=== PATIENT | male | born 1945 ===

== ENCOUNTER → 2019-02-03 11:53 | Outpatient (CLI) | payer MEDICARE, SELFPAY ==
[2019-02-03 12:47] LABS: Add Manual Diff / Slide Review NO; Basophils Absolute Auto 0 /uL (0-100); Basophils Percent Auto 0.4 % (0-2); Eosinophils Absolute Auto 0 /uL (0-450); Eosinophils Percent Auto 0.4 % (2-4); Hematocrit 48.2 % (41-53); Hemoglobin 16.4 g/dL (13.5-17.5); Lymphocytes Absolute Auto 2200 /uL (1100-4500); Lymphocytes Percent Auto 29.6 % (25-40); Mean Corpuscular Hemoglobin 31.6 PG (26-34); Mean Corpuscular Volume 92.9 fL (80-100); Monocytes Absolute Auto 500 /uL (0-900); Monocytes Percent Auto 7.2 % (3-14); Neutrophils Absolute Auto 4700 /uL (1500-7000); Neutrophils Percent Auto 62.4 % (50-75); Platelet Count 291 X10^3/uL (150-400); Red Blood Cell Count 5.19 X10^6/uL (4.5-5.9); Red Cell Distribution Width 13.7 % (11.6-14.8); White Blood Cell Count 7.5 X10^3/uL (4.5-11.0)
[2019-02-03 13:00] LABS: Hemoglobin A1C% w Est Avg Glu 5.6 % (4.0-6.0)
[2019-02-03 13:03] LABS: Erythrocyte Sedimentation Rate 3 MM/HR (0-15)
[2019-02-03 13:27] LABS: Alanine Aminotransferase 25 IU/L (<50); Albumin 4.6 g/dL (3.5-5.0); Albumin Globulin Ratio 1.4 (1.0-2.8); Alkaline Phosphatase 91 U/L (38-126); Aspartate Aminotransferase 28 IU/L (17-59); Bilirubin Total 0.5 mg/dL (0.2-1.3); Blood Urea Nitrogen 17 mg/dL (9-20); C-Reactive Protein Quant 0.6 mg/dL (<1.0); Calcium 9.9 mg/dL (8.4-10.2); Carbon Dioxide 24 mmol/L (22-32); Chloride 104 mmol/L (98-107); Estimated Glomerular Filt Rate > 60.0 mL/min (>60); Globulin 3.3 g/dL (1.7-4.1); Glucose 100 mg/dL (80-110); HEMOLYSIS < 15 (0-50); Potassium 4.8 mmol/L (3.4-5.1); Sodium 139 mmol/L (137-145); Total Protein 7.9 g/dL (6.3-8.2)
== END ==
PROVIDERS: PCP Nurse Practitioner; Visit Provider Orthopaedic Surgery
DX: Z01.818 Encounter for other preprocedural examination (principal); Z01.812 Encounter for preprocedural laboratory examination; R73.9 Hyperglycemia, unspecified
CPT/HCPCS: 36415; 80053; 83036; 85025; 85651; 86140; 93005

== ENCOUNTER → 2020-02-28 10:08 | Outpatient (CLI) | payer OTHER, MEDICARE, SELFPAY ==
[2020-02-28 11:31] LABS: COVID19 -Nasal RAPID Negative (Negative)
== END ==
PROVIDERS: PCP Nurse Practitioner; Visit Provider Physician Assistant
DX: Z01.812 Encounter for preprocedural laboratory examination (principal); Z20.828 Contact with and (suspected) exposure to other viral communicable diseases
CPT/HCPCS: 87635; C9803

== ENCOUNTER 2020-03-02 06:07 | Day surgery (SDC) | payer OTHER, MEDICARE, SELFPAY ==
[2020-02-23 08:22] VITALS: BMI 27.2
[2020-03-02] VITALS (15 sets, daily range): BP systolic 96–164; BP diastolic 57–95; PULSE 81–92; RESP 12–18; TEMP 36.2–37.2; O2SAT 92–100; BMI 27.2
[2020-03-02] MEDS: CELECOXIB 200 MG CAPSULE 400 MG PO (06:54)
[2020-03-02] MEDS: ACETAMINOPHEN 325 MG TABLET 975 MG PO (06:55)
[2020-03-02] MEDS: LACTATED RINGERS 1,000 ML 42 ML IV ×3 (07:10→13:06)
--- NOTE | 2020-03-02 10:11 | DI.RAD.S_ITS ---
PROCEDURE: XR KNEE LT 1TO2V INDICATIONS: TOTAL LEFT KNEE TECHNIQUE: 2 view(s) of the knee acquired. COMPARISON: None. FINDINGS: Bones: Patient is status post knee joint arthroplasty. Hardware components are in expected positions. Visualized bony structures are intact. Soft tissues: Overlying postoperative changes are noted. IMPRESSION: Expected postoperative alignment Dictated by: Hima Lopes M.D. on 03/02/2020 at 14:04 Approved by: Hima Lopes M.D. on 03/02/2020 at 14:04
[2020-03-02] MEDS: VANCOMYCIN 1,000 MG/200 ML PIGGYBACK 200 MG IV (10:53)
--- NOTE | 2020-03-02 11:03 | PM.PREOP ---
Pre-operative Note COVID-19 COVID-19 status: Negative Interval Note History & Physical reviewed/Exam performed by Physician: Yes Changes to H&P: No
--- NOTE | 2020-03-02 11:03 | PM.OP.1 ---
Operative Date/Time/Diagnoses Date of procedure: 03/02/20 Time of procedure: 11:31 Pre-op diagnosis: left knee OA Post-op diagnosis: same Procedure & Clinicians Procedure: Left total knee arthroplasty Same procedure as scheduled: Yes Indications: The patient has had progressively worsening left knee pain with radiographic changes consistent with arthritis. Non-operative management has failed and the patient has requested total knee replacement. The risks, benefits and alternatives to surgery were discussed with the patient prior to proceeding. Risks discussed included, but were not limited to, failure to relieve pain, stiffness, infection, nerve damage, deep venous thrombosis, pulmonary embolism, stroke, coma, heart attack, permanent paralysis and , as well as the potential need for eventual revision of the prosthetic. Surgeon: Loraine Gomez Specialty Transformer Assembler: Yuan Gregory Anesthesia Type: General and Spinal Operative Notes Findings: Severe left knee osteoarthritis, adequate bone, adequate stability Closure Type: primary Specimen(s): none sent Prosthetic devices, grafts, tissues, transplants, or devices: [facility] BCS 2 size 7 femur, size 6 tibia, +9 poly, 38 oval patella Estimated Blood Loss (mL): 250 Blood products transfused: none Tourniquet time (min): 71 Procedure in detail: The patient was seen in the pre-operative area, where the patient identified the left knee as the operative site and this was marked with my initials. The patient received pre-operative antibiotics, and was taken to the operating room and placed on the operative table in the supine position. After satisfactory anesthesia, a illustrator set out was performed. The left leg was encircled with a tourniquet about the proximal thigh, and the leg was prepared from the toes to the tourniquet with ChloroPrep in the usual fashion and draped through sterile drapes. The leg was elevated and exsanguinated with Eschmark bandage and the tourniquet inflated to [250] mmHg pressure. The knee was approached through an approximately 18 cm incision centered over the patella and carried into the knee through a medial parapatellar arthrotomy. A portion of the medial and lateral meniscus was resected. Soft tissue was carefully mobilized around the patella the patella was measured with a caliper. Bone was resected from the patella and the patellar height was reconstituted with up an appropriate sized patellar component. A cover was then placed on the patella. A small amount of additional medial and lateral meniscus was resected. The visionare guide fit well to the distal femur. It looked like an appropriate distal femoral cut and the cut was made without difficulty. The rotation was assessed and the appropriate size femoral guide was placed on the distal femur and finishing cuts were made. There was no evidence of notching. The anterior, posterior and chamfer cuts were then made. The posterior osteophytes and soft tissues were then removed. The posterior capsule was injected with part of a mixture of 60 ml 0.25% Marcaine mixed with 20 ml Exparel for post operative pain control. The remainder of this mixture was injected into the capsule and subcutaneous tissues during cement curing. The tibia was prepared and the visionaire guide fit well to the distal tibia. The rotation was assessed. The patient was placed in extension residual medial and lateral meniscus as well as any residual bone was carefully resected. [No] additional tibia was resected. Hemostasis was achieved especially posteriorly. Additional local was injected into the posterior capsule. The extension gap was assessed and additional releases for gap balancing were performed as necessary. It was checked with the gap pension manager. The femoral component was trial was placed and the notch was finished. Trial tibial and femoral components were then placed and the knee placed through a range of motion. Range of motion was [0-130], with good stability throughout the range. The trials were then removed, and the tibia was finished. The bone was prepared with pulsatile lavage, and dried with a sponge. Cement was applied and the final prosthetics placed. Excess cement was removed during and after cement curing. A brief Betadine soak was performed. After confirming there was no extruded cement posteriorly, the final tibial insert was placed. The knee was copiously irrigated and the tourniquet deflated. Hemostasis was obtained with the Bovie cautery. A drain was placed and brought out superolaterally. The capsule was closed with interrupted Vicryl suture. The subcutaneous layer was closed with barbed sutures, and the skin with a running 3-0 V-Lock suture and Surgical glue. An Aquacel Ag dressing was applied and the patient was taken to recovery having tolerated the procedure well. Complications: none Post-operative Condition: stable Disposition: Acute Care Plan for aftercare: The patient will be maintained on a standard total knee replacement protocol with weight bearing as tolerated. The patient will receive aspirin and sequential compression devices for DVT prophylaxis. The patient will be discharged home when safe for the home environment.
[2020-03-02] MEDS: CEFAZOLIN 2 GM/100 ML FROZ.PIGGY IV ×2 (11:23→19:05)
--- NOTE | 2020-03-02 11:59 | SUR.OPER ---
Supine on padded OR bed. Pillow under head, arms secured on padded armboards <90 degree abduction. Safety belt across torso. Non-operative leg secured with tape over blanket over lower leg. Operative leg secured in DeMayo positioner. Foam padded brace at thigh of operative leg.
[2020-03-02] MEDS: BUPIVACAINE 0.25% W/ EPI 30 ML VIAL 60 ML INJ (12:04)
[2020-03-02] MEDS: BUPIVACAINE LIPOSOME 266 MG/20 ML VIAL INJ (12:04)
[2020-03-02] MEDS: TRANEXAMIC ACID 1,000 MG VIAL 2000 MG INJ ×2 (12:05→13:00)
[2020-03-02] MEDS: SODIUM CHLORIDE IRRIG SOLUTION 250 ML, POVIDONE-IODINE SPONGE STICKS 1 APPLIC IRR (12:05)
[2020-03-02] MEDS: OXYCODONE IR 5 MG TABLET PO (13:38)
[2020-03-02] MEDS: ACETAMINOPHEN 325 MG TABLET 650 MG PO ×2 (14:52→20:46)
[2020-03-02] MEDS: LACTATED RINGERS 1,000 ML 100 ML IV (14:52)
--- NOTE | 2020-03-02 14:57 | PC.NURSE ---
admit pt to room 221 post op knee- mary wrap intact over aquacell - no drains no patel, LR @ 100cc/h. pt fully admitted , lungs clear + cms. instructed the call light and bed controls
[2020-03-02] MEDS: IBUPROFEN 400 MG TABLET PO ×2 (17:19→20:47)
[2020-03-02] MEDS: ONDANSETRON 4 MG/2 ML INJ IV (17:19)
[2020-03-02] MEDS: ASPIRIN EC 81 MG TABLET PO (20:46)
[2020-03-02] MEDS: lisinopriL 20 MG TABLET 40 MG PO (20:47)
[2020-03-02] MEDS: DOCUSATE 100 MG CAPSULE PO (20:47)
[2020-03-03] VITALS: BP 160/89; PULSE 102; RESP 16; TEMP 37.2; O2SAT 96
[2020-03-03] MEDS: LACTATED RINGERS 1,000 ML 100 ML IV (00:02)
[2020-03-03] MEDS: ONDANSETRON 4 MG/2 ML INJ IV (02:28)
[2020-03-03] MEDS: IBUPROFEN 400 MG TABLET PO ×2 (02:28→09:45)
[2020-03-03] MEDS: CEFAZOLIN 2 GM/100 ML FROZ.PIGGY IV (03:10)
[2020-03-03 05:36] VITALS: BP 144/90; PULSE 80; RESP 16; TEMP 36.9; O2SAT 97
[2020-03-03] MEDS: HYDROCODONE/ACET 10/325 TABLET 1 TAB PO ×3 (05:40→12:49)
[2020-03-03 05:44] LABS: Hematocrit 40.9 % (41-53); Hemoglobin 13.7 g/dL (13.5-17.5)
[2020-03-03 08:24] VITALS: BP 167/87; PULSE 85; RESP 14; TEMP 37.1; O2SAT 95
[2020-03-03] MEDS: ASPIRIN EC 81 MG TABLET PO (09:45)
[2020-03-03] MEDS: DOCUSATE 100 MG CAPSULE PO (09:45)
--- NOTE | 2020-03-03 09:45 | PM.DS.1 ---
History of Present Illness History of Present Illness Date Patient Seen: 03/03/20 Time Patient Seen: 09:45 Chief complaint: OPB Narrative: see progress note Discharge Providers Provider Discharge Date: 03/03/20 Primary care physician: RAJNI Winter Consults: 03/02/20 10:11 Consult to Anesthesiology Routine Comment: Consulting Provider: Anesthesiologist Reason for consultation: Regional block for post operative pain control 03/02/20 14:15 Consult to Discharge Planning Routine Comment: Consult to Physical Therapy Evaluate & Treat Comment: Physician Instructions: postop TKA protocol Consult to Respiratory Therapy Evaluate & Treat Comment: Physician Instructions: Evaluate and treat Discharge provider: Yuan Gregory PA-C Summary Hospital Course Discharge Diagnosis: left knee OA Hospital Course: Left total knee arthroplasty Same procedure as scheduled: Yes Indications: The patient has had progressively worsening left knee pain with radiographic changes consistent with arthritis. Non-operative management has failed and the patient has requested total knee replacement. The risks, benefits and alternatives to surgery were discussed with the patient prior to proceeding. Risks discussed included, but were not limited to, failure to relieve pain, stiffness, infection, nerve damage, deep venous thrombosis, pulmonary embolism, stroke, coma, heart attack, permanent paralysis and , as well as the potential need for eventual revision of the prosthetic. Surgeon: Loraine Gomez Client Relation Specialist: Yuan Gregory Anesthesia Type: General and Spinal Operative Notes Findings: Severe left knee osteoarthritis, adequate bone, adequate stability Closure Type: primary Specimen(s): none sent Prosthetic devices, grafts, tissues, transplants, or devices: [employer] [facility] BCS 2 size 7 femur, size 6 tibia, +9 poly, 38 oval patella Estimated Blood Loss (mL): 250 Blood products transfused: none Tourniquet time (min): 71 Status at Discharge Cognitive/behavioral status at discharge: at baseline, oriented Functional status at discharge: uses cane/walker Overall status at discharge: patient is progressing back to baseline Time Spent with Patient Time spent: Less than 30 minutes Exam Vital Signs (past 8 hours): - 03/03/20 05:36 03/03/20 08:24 Temperature 98.5 F 98.8 F Pulse Rate 80 85 Respiratory Rate 16 14 Blood Pressure 144/90 H 167/87 H Pulse Oximetry 97 95 Oxygen Delivery Method Room Air Oxygen Flow Rate 0 Narrative Exam Narrative: see progress note Objective Labs Result Diagrams: 03/03/20 05:22 Labs: Laboratory Results - last 24 hr 03/03/20 05:22 Hgb 13.7 Hct 40.9 L PFSH Medical History Chronic neck pain Hip fracture, left (1983) HTN (hypertension) Osteoarthritis Surgical History History of total left hip arthroplasty (12/25/14) Hx of bursectomy (05/17/17) Hx of cholecystectomy Hx of left knee surgery Hx of right inguinal hernia repair Social History household members: spouse Smoking Status: Never smoker alcohol intake: current Discharge Assessment & Plan Assessment and Plan Assessment: Stable status post left total knee arthroplasty Plan of Treatment: Weight-bearing as tolerated. Aspirin for DVT prophylaxis. Discharge home today in stable condition. Discharge Plan Discharge Plan Patient Disposition: Home Provider Discharge Comment: DC after PT Discharge orders & Medications Discharge Orders: Discharge (Order); Ordered 03/03/20 Ordered By: Yuan Gregory Prescriptions: New acetaminophen 325 mg Tablet 650 mg PO TID Qty: 60 RF: 0 hydrocodone-acetaminophen 10-325 mg Tablet 1 tab PO Q4H PRN (Reason: Pain) Qty: 60 RF: 0 aspirin 81 mg Tablet,Delayed Release (Dr/Ec) 81 mg PO BID Qty: 60 RF: 0 ibuprofen 400 mg Tablet 400 mg PO Q4HR Qty: 60 RF: 0 ondansetron 4 mg Tablet,Disintegrating 4 mg PO Q4HR PRN (Reason: Nausea) Qty: 20 RF: 0 docusate sodium [DOK] 100 mg Capsule 100 mg PO BID Qty: 20 RF: 0 Continued fluconazole [Diflucan] 100 mg tablet 400 mg PO QAM Qty: 0 RF: 0 lisinopril 40 mg Tablet 40 mg PO BEDTIME RF: 0 Discontinued hydrocodone-acetaminophen 10 MG/325 MG tablet 1 tab PO Q4HP PRN (Reason: Pain) RF: 0 Follow up/Referrals: Latha Lynn ARNP [Primary Care Provider] - Loraine Gomez MD [Physician] - (2 wks) Diet/Activity/Treatments Diet: Diet as Tolerated Activity: WBAT Cold/Heat Therapy: ice to knee as needed Skin/Wound/Dressing Care Report to your healthcare provider any signs of infection, such as:: chills, fever, increased pain, unusual drainage and unusual redness Dressing: keep clean and dry Visit Report/Discharge Packet Instructions: DI for Knee Replacement Stand Alone Forms: Surgery Discharge Discharge Data Primary Care Provider: Latha Lynn Attending Provider: Loraine Gomez
--- NOTE | 2020-03-03 09:50 | PC.NURSE ---
AM shift Pt is feeling well with pain well controlled and no nausea this am. PT up in [place] and Pt plans to dc at lunchtime today.
[2020-03-03] MEDS: FLUCONAZOLE 100 MG TABLET 400 MG PO (10:57)
--- NOTE | 2020-03-03 11:14 | PT.IIE ---
Current Diagnoses Unilateral primary osteoarthritis, left knee (03/02/20) Surgery Performed Operation Date: 07/10/19 13:45 <No data on this case meets the specified criteria> Operation Date: 12/18/19 13:45 <No data on this case meets the specified criteria> Operation Date: 03/02/20 07:45 Actual Procedures p Total Knee Arthroplasty(Left) - Loraine Gomez MD Surgical History (Last Reviewed 03/03/20 @ 09:46 by Yuan Gregory PA-C) History of total left hip arthroplasty (12/25/14) Hx of bursectomy (05/17/17) Hx of cholecystectomy Hx of left knee surgery Hx of right inguinal hernia repair Medical History (Last Reviewed 03/03/20 @ 09:46 by Yuan Gregory PA-C) Chronic neck pain Hip fracture, left (1983) HTN (hypertension) Osteoarthritis Physical Therapy Inpatient Evaluation/Re-Eval M1 PT/OT-IP Prior Functional Status Start: 03/03/20 08:44 Freq: NEEDED Status: Active Protocol: Document 03/03/20 10:58 (Rec: 03/03/20 11:14 [email or web address]) Medical Review Prior Functional Status Medical History Reviewed Yes Diet/Fluid Consistency Regular Communication no deficits noted Mobility and Gait pt ussed SPC for long walks usually but progressively getting worse who uses B crutches to amb since January . Activities of Daily Living and IADL's IND for ADLs and able to drive . assisted in hosue cleaning and cooking. Social History Household Members spouse Living Arrangements House Number of Floors (Floors) One Floor Number of Stairs To Enter/Railing? 3 THERESA with B rails for front entrance, 1 THERESA w/o rails for back entrance Home Environment Standard Height Toilet,Walk in Shower Home Equipment Front Wheel Walker,Straight Cane,Crutches,Raised Toilet Seat w/Armrests,Shower Seat with Backrest,Consulting Hr Professional Employment Status Retired Additional Social History Comment Pt lives with his in [place]. Pt likes to spend time at his [employer] shop 90 % of the time. 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 will be assist radio time salesperson and their renter can assist if needed as well. M2 PT-IP Current Condition Start: 03/03/20 08:44 Freq: NEEDED Status: Active Protocol: Document 03/03/20 10:58 (Rec: 03/03/20 11:14 [email or web address]) Physical Therapy Current Condition Current Condition Evaluation Date 03/03/20 Treatment Diagnosis L TKA, difficulty in walking Onset Date 03/02/20 Weight Bearing Status Weight Bearing Status Weight Bear as Tolerated M3 PT-IP Subjective Start: 03/03/20 08:44 Freq: NEEDED Status: Active Protocol: Document 03/03/20 10:58 (Rec: 03/03/20 11:14 [email or web address]) Subjective Physical Therapy Visit Type Type Initial Evaluation Visit Start Time 09:00 Visit Stop Time 09:33 Total Visit Minutes 33 Notes attended session Number of CASER UP Visits 0 Physical Therapy Visit Comments Patient Comments Im feeling good today. Patient Goals to return home once he is medically safe. Therapy Pain Assessment Pain When Pain Assessed During Mobility Pain Present Pain Present Pain Reported Location ledft knee Intensity 3 Scale Used Numeric (0 - 10) Description Aching,With Movement Pain Management Techniques Timing of Activity with Medications M4 PT-IP Mobility and Gait Start: 03/03/20 08:44 Freq: NEEDED Status: Active Protocol: Document 03/03/20 10:58 (Rec: 03/03/20 11:14 [email or web address]) PT-Bed Mobility Assessment Supine to Sit Supine to Sit Standby Assistance,Bedrails Scooting Scooting to Edge of Bed Standby Assistance PT-Transfer Assessment Sit to and From Stand Sit to and from Stand Standby Assistance,1 Person Assistance,Use of Upper Extremities Equipment Transfer Assistive Device Gait Belt,Front Wheeled Walker Orthotic/Prosthetic Devices or Brace: No Transfers Transfer Destination Bed,Chair Transfer Technique Stand Step Pivot Transfer Ability Level of Assist Standby Assistance,Use of Upper Extremities Comments Mobility Comments Pt was in bed upon PT arrival. at bedside. pain at 05/12 . Pt practiced TKE in bed at first and he was able to completed supine to long sit with slight pull from R bed rail. He then pivoted himself to L EOB SBA. Pt practiced seated knee flexion up to 75- 80 degrees of L knee flexion. He then stood up with SBA from staggered stance position with FWW. He proceed to walk in the hallway with step to pattern at first. Pt walked approx 60 ft with good step to pattern steadily CGA. He then requested to return to his room d/t increased soreness at L knee. He was able to use 1/ 2 step over gait pattern but decreased L foot clearance and L knee flexion during swing phase. He was able to demonstrate safe stand step pivot transfer to chair with good hand placements on chair armrests. Pt cont to practice seated knee flexion after. BP at 160/82. (baseline) Call light placed within reach. Gait Assessment Gait Gait Assistance Required: Standby Assistance,Contact Guard Assist Distance (Feet) 120 Able to Maintain Weight Bearing Status Yes During Gait Assistive Devices Assistive Device Gait Belt,Front Wheeled Walker Orthotic/Prosthetic Devices or Brace: No Gait Deviations General Gait Pattern Antalgic,Decreased Stride Length,Decreased Feet Clearance,Step-to Gait Factors Limiting Gait Function Factors Limiting Gait Function Decreased Activity Tolerance, Decreased Strength,Limited Range of Motion,Pain,Poor Balance Comments Gait Comments see mobiltiy comments Stair Climbing Assessment Comments Stair Climbing Comments did not assess yet. PT-Balance Assessment Sitting Balance and Reactions Static Sitting Balance Ability Normal Dynamic Sitting Balance Ability Normal Standing Balance and Reactions Static Standing Balance Ability Good Dynamic Standing Balance Ability Good Device Used FWW M5 PT-IP Objective Assessments Start: 03/03/20 08:44 Freq: NEEDED Status: Active Protocol: Document 03/03/20 10:58 (Rec: 03/03/20 11:14 [email or web address]) Orientation Orientation/Cognition Level of Alertness Alert Orientation Name,Age,Birthday,Month,Date, Year,Day of Week,Place, Situation Language Function Ability No Deficits Noted Safety Awareness Understands Safety Issues Memory Description No Deficits Noted Gross Range of Motion Upper Extremity ROM Assessment Within Functional Limits Lower Extremity ROM Assessment Left Impaired Impairments 8 - 80 degrees flexion in seated. Strength Upper Extremity Strength Assessment Within Functional Limits Lower Extremity Strength Assessment Left Impaired Hip 5/5 Knee 4-/5 Ankle 5/5 Coordination Assessment Gross Coordination Gross Coordination WNL Sensation Assessment Sensation Gross Sensation WNL M6 PT-IP Treatment Start: 03/03/20 08:44 Freq: NEEDED Status: Active Protocol: Document 03/03/20 10:58 (Rec: 03/03/20 11:14 [email or web address]) Physical Therapy Treatment Exercises Exercises Ankle Pumps,Gluteal Sets,Quad Sets,Heel Slides Education Education Provided Precautions,Weight Bearing Status,Post-Op Packet,Safety M7 PT-IP Assessment and Plan Start: 03/03/20 08:44 Freq: NEEDED Status: Active Protocol: Document 03/03/20 10:58 HH (Rec: 03/03/20 11:14 [email or web address]) PT Summary Assessment and Plan Potential Rehabilitation Potential Excellent Status of Condition at Evaluation Stable Summary Impairments Pain,ROM,Strength,Balance,Bed Mobility,Transfers,Gait, Activity Tolerance Assessment Summary Pt is a74 yo male s/p POD1 L TKA. PLOF: pt was active and very IND but does use SPC for long walks. He then had to use B crutches for mobility starting from January d/t increased L knee pain. He is IND for ADLs and min assistance from . CLOF= pt needed SBA/CGA for all mobility with FWW. His pain is well controlled and both pt and have good safety awareness and understanding of post op protocol and HEP. Pt will have to clear 3 steps with B rails/ 1Step w/o rails with PT prior to DC home with assistance and outpatient PT Goals Bed Mobility Goal Independent Transfer Goal Standby Assistance,Contact Guard Assistance,Front Wheeled Walker Gait Goal Standby Assistance,Contact Guard Assistance,Front Wheel Walker Gait Distance 200 Other Goals 3 steps with B rails/ 1Step w/ o rails Days to Meet Goals 2 Frequency of Treatment Frequency Of Treatment Twice a Day Treatment Plan Physical Therapy Treatment Plan Bed Mobility Training,Transfer Training,Gait Training, Therapeutic Exercise,Balance Retraining,Post Op Education, Discharge Planning,Hot or Cold Pack,Neuromuscular Re-ed Other Recommendations and Next Treatment vitals Focus gait training stair climbing 3 steps with B rails/ 1Step w/ o rails Recommendations To Nursing Amount of Assist Needed 1 Person Assist Discharge Recommendations PT Discharge Recommendations Home with Assistance, Outpatient PT Transportation Needs at Discharge Private Vehicle
[2020-03-03 11:20] VITALS: BP 146/78; PULSE 72; RESP 16; TEMP 36.9; O2SAT 94
--- NOTE | 2020-03-03 14:18 | CM.DANOTE ---
DCP/assessment: Reviewed chart. Patient is a 74yr old male admitted to [facility] for left TKA performed on 03-02-20. PCP listed is Latha Lynn. Primary payor is 1)[facility]. Met with patient and spouse/Kary at bedside explained CM/SW role. Patient reports that he plans to return home today after seen by therapy. Patient has all needed DME and scheduled to go to outpatient therapy in [place]. No identified needs. P: Home at time of d/c. TYSON Lara Discharge Planning/Care Management CM Discharge Assessment Start: 03/03/20 14:16 Freq: Status: Active Protocol: Document 03/03/20 14:16 KJS (Rec: 03/03/20 14:18 KJS [id number]) Discharge Planning Assessment Assigned [employer] As[employer]er TYSON Lara Contact Information Kary Torres (spouse) # [phone] Advance Directives? No History Provided By Patient,Significant Other, Medical Record Prior Living Arrangements House Household Members spouse Type of transporation used prior to Drives own vehicle admit Independent with ADL's Yes Is patient alert and oriented? Yes Caregiver for Another No DME Already Rented / Owned FWW / Walker Patient/Family Preference OP PT Therapy Discharge Plan Home Transportation Arrangement Spouse to provide transport. Referrals Initiated None needed Whiteboard Updated in Patient Room with Yes name and ext. # of [employer] Assembler Review Status In Process Next Review Type Continued Stay Review Pre-Anesthesia Assessment Start: 02/23/20 08:22 Freq: Status: Complete Protocol: Document 02/23/20 08:22 CAB (Rec: 02/23/20 09:30 CAB [id number]) Pre-Anesthesia Assessment Preferred Name Rinku Patient Information Reviewed Via Phone Assessment Assessment Completed With Patient Diagnostic Results BMP/CMP,CBC,EKG Comment Outside labs/EKG scanned, COVID screen @ [facility] 02/28/20 Primary Care Provider Latha Lynn Seen Specialist in Last 12 Months Yes Specialist Seen Orthopedist,Other Comment Infectious physician Primary Language Omani Height 177.8 cm Weight 86.183 kg Body Mass Index (BMI) 27.2 Hearing Ability Normal Visual Assist Contacts Dentition Type Teeth, Natural Present Barriers to Learning None Hx Anesthesia Reactions No Hx Family Anesthesia Reaction No Hx Malignant Hyperthermia No Hx Blood Transfusions No Anesthesia Review Requested No alcohol intake current alcohol intake frequency a few times a week Smoking Status Never smoker Substance Use Type does not use Pain Present Pain Reported Musculoskeletal Symptoms Abnormal Gait,Difficulty Walking,Joint Pain,Neck Pain History of Falling (Recent or History of No ) Patient is completely paralyzed or No completely immobile Prosthesis or Orthotic Device Front Wheel Walker,Crutches Mental Status Oriented to own ability Is patient on oxygen? No Does patient have AMOR/SOB No Hx Sleep Apnea No Currently Taking a Beta Clay No Can You Climb a Flight of Stairs Without Yes SOB Hx Chest Pain No Hx SOB No Hx Syncope or Dizziness No Anti-Coagulant Therapy No Has a Media Senior Recruiter No Cardiac Testing No Hx Pacemaker/ICD No Pacemaker Rep Required? No Cardiac Clearance Received Not Applicable Diet Type At Home Regular dysphagia No Urinary Catheter Present No Hx Urinary Self Catheterization No Diabetes No Hx Drug Resistant Organism No Presence of External or Internal Medical Yes: Left hip Devices Have you had any close contact with No someone diagnosed with COVID-19? Marital Status Lives With spouse Prior Living Arrangements House Number of Floors (Floors) One Floor Support System Spouse Does the Patient Have Assistance After Yes Surgery Comment Pt not advised on length of stay per surgeon Feels Safe in Current Environment Yes Been Physically Hurt or Threatened By a No Person in Current Environment Do you have thoughts of harming yourself None or others? Are you currently considering suicide? No Do you have a plan to hurt yourself or No Plan others? Do You Have Any Spiritual Beliefs That No May Affect Your HC Choices? Do You Have Any Cultural Practices That No May Affect Your HC Choices? Comment Latter-Day Who Can We Speak to About Patient's Care Family, friends Identifying Code for Release of Patient Declines to issue Information Health Care Proxy/Next of Kin Kary () Health Care Proxy Emergency Contact Name Kary () Emergency Contact Advance Directives? No PAC Instructions Durable medical equipment, Medications to take/avoid, Nasal antibiotic,No ETOH/ petroleum product on skin DOS, NPO,Pre-surgical wash,Sensory aids,Sturdy shoes/comfortable clothes,Do not bring valuables and remove jewelry
--- NOTE | 2020-03-03 14:35 | PT.IPTN ---
Current Diagnoses Unilateral primary osteoarthritis, left knee (03/02/20) Surgery Performed Operation Date: 07/10/19 13:45 <No data on this case meets the specified criteria> Operation Date: 12/18/19 13:45 <No data on this case meets the specified criteria> Operation Date: 03/02/20 07:45 Actual Procedures p Total Knee Arthroplasty(Left) - Loraine Gomez MD Physical Therapy Treatment Note M2 PT-IP Current Condition Start: 03/03/20 08:44 Freq: NEEDED Status: Active Protocol: Document 03/03/20 10:58 HH (Rec: 03/03/20 11:14 [id number]) Physical Therapy Current Condition Current Condition Evaluation Date 03/03/20 Treatment Diagnosis L TKA, difficulty in walking Onset Date 03/02/20 Weight Bearing Status Weight Bearing Status Weight Bear as Tolerated M3 PT-IP Subjective Start: 03/03/20 08:44 Freq: NEEDED Status: Active Protocol: Document 03/03/20 14:12 SP (Rec: 03/03/20 16:15 SP [id number]) Subjective Physical Therapy Visit Type Type Treatment Note Visit Start Time 14:12 Visit Stop Time 14:35 Total Visit Minutes 23 Number of ASSISTANT INFANT TEACHER Visits 1 Physical Therapy Visit Comments Patient Comments I am doing pretty good, ready to try stairs and go home with my . Patient Goals To return home with my to help me. Therapy Pain Assessment Pain When Pain Assessed During Mobility Pain Present Pain Present Pain Reported Location ledft knee Intensity 2 Scale Used Numeric (0 - 10) Description Aching,With Movement Pain Management Techniques Re-positioning,Timing of Activity with Medications M4 PT-IP Mobility and Gait Start: 03/03/20 08:44 Freq: NEEDED Status: Active Protocol: Document 03/03/20 14:12 SP (Rec: 03/03/20 16:15 SP [id number]) PT-Transfer Assessment Sit to and From Stand Sit to and from Stand Standby Assistance,Use of Upper Extremities Equipment Transfer Assistive Device Gait Belt,Front Wheeled Walker Orthotic/Prosthetic Devices or Brace: No Transfers Transfer Destination Wheelchair Transfer Technique pt ambulated using FWW Transfer Ability Level of Assist Standby Assistance,Use of Upper Extremities Comments Mobility Comments Pt was reclined in chair when arrived, reviewed post op ex and packet. Assisted patient with slow paced lowering legs rests. sit> stand SBA using FWW with cuing intially for awareness equal BLE WB then L knee full extension awareness while transitioning heel toe gait during further distance into hallway to stairs approx 200 ft w/ w/c follow in case of decreased strength and endurance. Pt ascended/ descended 3 stairs L HR step to proper patterning CGA, stable. Pt requested seated rest in w/c due to pain increasing to 4/10 in L knee even though premedicated 1 hr prior. stand> sit into w/c SBA . ASSISTANT INFANT TEACHER wheeled patient back to room and notified nursing pt is ok to return home with spouse to assist him when medically cleared, already set up for outpt therapy. Pt had call light and all needs near him while sitting in w/c. Gait Assessment Gait Gait Assistance Required: Standby Assistance,Contact Guard Assist Distance (Feet) 200 Able to Maintain Weight Bearing Status Yes During Gait Assistive Devices Assistive Device Gait Belt,Front Wheeled Walker Orthotic/Prosthetic Devices or Brace: No Gait Deviations General Gait Pattern Antalgic,Decreased Stride Length,Decreased Feet Clearance,Step-to Gait Factors Limiting Gait Function Factors Limiting Gait Function Decreased Activity Tolerance, Decreased Strength,Limited Range of Motion,Pain Comments Gait Comments See mobility comments for details. Stair Climbing Assessment Evaluation Level of Assist On Stairs Contact Guard Assistance Devices Stair Climbing Assistive Devices Left Railing Technique/Endurance Stair Climbing Direction Ascend and Descend Stair Climbing Technique Step to Step Number of Steps Climbed 3 Stair Climbing Set # Repetitions (reps) 1 Comments Stair Climbing Comments see mobility comments for details. PT-Balance Assessment Sitting Balance and Reactions Static Sitting Balance Ability Normal Dynamic Sitting Balance Ability Normal Standing Balance and Reactions Static Standing Balance Ability Good Dynamic Standing Balance Ability Good Device Used FWW M5 PT-IP Objective Assessments Start: 03/03/20 08:44 Freq: NEEDED Status: Active Protocol: Document 03/03/20 10:58 (Rec: 03/03/20 11:14 [id number]) Orientation Orientation/Cognition Level of Alertness Alert Orientation Name,Age,Birthday,Month,Date, Year,Day of Week,Place, Situation Language Function Ability No Deficits Noted Safety Awareness Understands Safety Issues Memory Description No Deficits Noted Gross Range of Motion Upper Extremity ROM Assessment Within Functional Limits Lower Extremity ROM Assessment Left Impaired Impairments 8 - 80 degrees flexion in seated. Strength Upper Extremity Strength Assessment Within Functional Limits Lower Extremity Strength Assessment Left Impaired Hip 5/5 Knee 4-/5 Ankle 5/5 Coordination Assessment Gross Coordination Gross Coordination WNL Sensation Assessment Sensation Gross Sensation WNL M6 PT-IP Treatment Start: 03/03/20 08:44 Freq: NEEDED Status: Active Protocol: Document 03/03/20 14:12 SP (Rec: 03/03/20 16:15 SP [id number]) Physical Therapy Treatment Exercises Exercises Ankle Pumps,Gluteal Sets,Quad Sets,Heel Slides,Seated Knee Flexion/Extension Education Education Provided Precautions,Weight Bearing Status,Post-Op Packet,Safety M7 PT-IP Assessment and Plan Start: 03/03/20 08:44 Freq: NEEDED Status: Active Protocol: Document 03/03/20 14:12 SP (Rec: 03/03/20 16:15 SP [id number]) PT Summary Assessment and Plan Potential Rehabilitation Potential Excellent Status of Condition at Evaluation Stable Summary Impairments Pain,ROM,Strength,Balance,Bed Mobility,Transfers,Gait, Activity Tolerance Progress Towards Goals Progressing Toward Goals,Slow Progress due to Activity Tolerance Assessment Summary Pt required sBA during all mobility using fWW, w/c follow during gait secondary to decrease strength and activity tolerance, CGA during 3 stair mgt 1 HR. His pain is well controlled and pt has good safety awareness and understanding of post op protocol and HEP. Pt is ok to return home with to assist him when medically cleared, outpt therapy set up. Goals Bed Mobility Goal Independent Transfer Goal Standby Assistance,Contact Guard Assistance,Front Wheeled Walker Gait Goal Standby Assistance,Contact Guard Assistance,Front Wheel Walker Gait Distance 200 Other Goals 3 steps with B rails/ 1Step w/ o rails Days to Meet Goals 2 Frequency of Treatment Frequency Of Treatment Twice a Day Treatment Plan Physical Therapy Treatment Plan Bed Mobility Training,Transfer Training,Gait Training, Therapeutic Exercise,Balance Retraining,Post Op Education, Discharge Planning,Hot or Cold Pack,Neuromuscular Re-ed Other Recommendations and Next Treatment distance gait, ther ex, 1 step Focus w/o rails. Recommendations To Nursing Amount of Assist Needed 1 Person Assist Discharge Recommendations PT Discharge Recommendations Home with Assistance, Outpatient PT Transportation Needs at Discharge Private Vehicle
== END 2020-03-03 14:30 | disposition home or self-care (01) ==
LOC: OR 06:08 → AC 06:09
PROVIDERS: PCP Nurse Practitioner; Referring Provider Nurse Practitioner; Visit Provider Orthopaedic Surgery
PROC: 0SRD0JZ Replacement of Left Knee Joint with Synthetic Substitute, Open Approach (ICD-10-PCS; CPT 27447; principal; 2020-03-02 07:45)
DX: M17.12 Unilateral primary osteoarthritis, left knee (principal); I10 Essential (primary) hypertension
CPT/HCPCS: 27447; 36415; 73560; 85014; 85018; 87070; 87075; 87205; 97116; 97161; 97530; C1776; C9290; J0690; J2274; J2405; J2704

== ENCOUNTER → 2021-05-23 14:18 | Outpatient (CLI) | payer OTHER, SELFPAY ==
[2020-03-02 14:30] VITALS: BMI 27.2
[2021-05-23 16:14] LABS: Add Manual Diff / Slide Review NO; Basophils Absolute Auto 0 /uL (0-100); Basophils Percent Auto 0.3 % (0-2); Eosinophils Absolute Auto 100 /uL (0-450); Eosinophils Percent Auto 1.2 % (2-4); Hematocrit 44.2 % (41-53); Hemoglobin 14.6 g/dL (13.5-17.5); Lymphocytes Absolute Auto 1600 /uL (1100-4500); Lymphocytes Percent Auto 31.1 % (25-40); Mean Corpuscular HGB Conc 32.9 % (30-36); Mean Corpuscular Hemoglobin 30.9 PG (26-34); Mean Corpuscular Volume 93.8 fL (80-100); Monocytes Absolute Auto 400 /uL (0-900); Monocytes Percent Auto 7.1 % (3-14); Neutrophils Absolute Auto 3200 /uL (1500-7000); Neutrophils Percent Auto 60.3 % (50-75); Platelet Count 253 X10^3/uL (150-400); Red Blood Cell Count 4.72 X10^6/uL (4.5-5.9); Red Cell Distribution Width 14.4 % (11.6-14.8); White Blood Cell Count 5.3 X10^3/uL (4.5-11.0)
[2021-05-23 16:20] LABS: INR 1.1 (0.9-1.3); Prothrombin Time 11.9 SECONDS (10.1-12.7)
[2021-05-23 16:58] LABS: Hemoglobin A1C% w Est Avg Glu 5.8 % (4.0-6.0)
[2021-05-23 16:59] LABS: BUN Creatinine Ratio 19.1 (6-22); Blood Urea Nitrogen 18 mg/dL (9-20); C-Reactive Protein Quant < 0.5 mg/dL (<1.0); Calcium 9.4 mg/dL (8.4-10.2); Carbon Dioxide 26 mmol/L (22-32); Chloride 103 mmol/L (98-107); Estimated Glomerular Filt Rate > 60.0 mL/min (>60); Glucose 140 mg/dL (80-110); HEMOLYSIS 17 (0-50); Potassium 3.7 mmol/L (3.4-5.1); Sodium 139 mmol/L (137-145)
[2021-05-23 17:16] LABS: Appearance Urine UA CLEAR; Bilirubin Urine UA NEGATIVE (NEGATIVE); Color Urine UA YELLOW; Glucose Urine UA NEGATIVE (Negative); Ketones Urine UA NEGATIVE (NEGATIVE); Leukocyte Esterase Urine UA NEGATIVE (NEGATIVE); Nitrite Urine UA NEGATIVE (Negative); Occult Blood Urine UA TRACE-INTACT (Negative); Protein Urine UA NEGATIVE (Negative); Specific Gravity Urine UA <=1.005 (1.000-1.035); Urobilinogen Urine UA 0.2 E.U./dL (0.2)
[2021-05-23 17:20] LABS: Bacteria Urine None Seen; Culture Indicated Urine Cult Not Indicated; RBC Urine 0-1/HPF (0-5/HPF); WBC Urine 0-1/HPF (0-5/HPF)
[2021-05-23 17:23] LABS: Erythrocyte Sedimentation Rate 12 MM/HR (0-15)
== END ==
PROVIDERS: PCP Nurse Practitioner; Referring Provider Orthopaedic Surgery; Visit Provider Orthopaedic Surgery
DX: Z01.818 Encounter for other preprocedural examination (principal); R73.9 Hyperglycemia, unspecified; Z01.812 Encounter for preprocedural laboratory examination; N39.0 Urinary tract infection, site not specified; Z51.81 Encounter for therapeutic drug level monitoring
CPT/HCPCS: 36415; 80048; 81001; 83036; 85025; 85610; 85651; 86140; 93005

== ENCOUNTER → 2021-08-09 09:16 | Outpatient (CLI) | payer OTHER, SELFPAY ==
[2020-03-02 14:30] VITALS: BMI 27.2
[2021-08-09 10:49] LABS: COVID19 -Nasal RAPID Negative (Negative)
== END ==
PROVIDERS: PCP Nurse Practitioner; Referring Provider Orthopaedic Surgery; Visit Provider Orthopaedic Surgery
DX: Z11.59 Encounter for screening for other viral diseases (principal); Z20.828 Contact with and (suspected) exposure to other viral communicable diseases; Z20.822 Contact with and (suspected) exposure to COVID-19
CPT/HCPCS: 87635; 99001

== ENCOUNTER 2021-08-18 08:40 | Day surgery (SDC) | payer OTHER, SELFPAY ==
[2020-03-02 14:30] VITALS: BMI 27.2
[2021-08-08 15:22] VITALS: BMI 27.2
[2021-08-18] VITALS (15 sets, daily range): BP systolic 70–158; BP diastolic 50–86; PULSE 56–91; RESP 13–20; TEMP 36.1–37.1; O2SAT 93–100; BMI 27.2
--- NOTE | 2021-08-18 07:24 | DI.RAD.S_ITS ---
PROCEDURE: XR HIP W PEL IF DONE RT 2V INDICATIONS: Prosthesis placement/intraop TECHNIQUE: 4 intraoperative view(s) of the hip acquired. COMPARISON: None. FINDINGS: Intraoperative images are pertain during right hip arthroplasty placement. Left hip arthroplasty is also present. IMPRESSION: Intraoperative imaging obtained during hip arthroplasty placement. Dictated by: Kameron Moreira M.D. on 08/18/2021 at 14:43 Approved by: Kameron Moreira M.D. on 08/18/2021 at 16:39
[2021-08-18] MEDS: LACTATED RINGERS 1,000 ML 42 ML IV ×3 (09:20→14:19)
[2021-08-18 09:30] LABS: COVID19 -Nasal RAPID Negative (Negative)
[2021-08-18] MEDS: ACETAMINOPHEN 325 MG TABLET 975 MG PO (09:36)
[2021-08-18] MEDS: CELECOXIB 200 MG CAPSULE PO (09:36)
[2021-08-18] MEDS: PREGABALIN 75 MG CAPSULE PO (09:37)
--- NOTE | 2021-08-18 09:50 | SUR.PREOP ---
08/18/21- iv attempt left wrist by Audelia Carvajal RN. unsucessful. patient c/o nausea.dizziness. moist skin. heart rate regular. hob down. feet up. 2nd iv unsucessful. iv in left ac. iv bolus given. bp from 7050-up to 105/60s. heart rate from 56 up to 76. Starting to feel better. Remained alert/oriented and talking . hob elevated 45degrees. bp stable. asymptomatic. gowns/linnen changed. iv slowed down. feels fine. skin dry and pink.
[2021-08-18] MEDS: VANCOMYCIN 1,000 MG/200 ML PIGGYBACK 200 MG IV (10:08)
--- NOTE | 2021-08-18 11:00 | PM.PREOP ---
Pre-operative Note COVID-19 COVID-19 status: Negative Interval Note History & Physical reviewed/Exam performed by Physician: Yes Changes to H&P: No
--- NOTE | 2021-08-18 11:18 | P.OP_ITS ---
Operative Date/Time/Diagnoses Date of procedure: 08/18/21 Time of procedure: 11:50 Pre-op diagnosis: right hip OA Post-op diagnosis: same Procedure & Clinicians Procedure: Right total hip arthroplasty anterior approach Same procedure as scheduled: Yes Indications: The patient has had progressively worsening right hip pain with radiographic c hanges consistent with arthritis. Non-operative management has failed and the patient has requested total hip replacement. The risks, benefits and alternatives to surgery were discussed with the patient prior to proceeding. Risks discussed included, but were not limited to, failure to relieve pain, leg length discrepancy, dislocation, stiffness, infection, nerve damage, deep venous thrombosis, pulmonary embolism, stroke, coma, heart attack, permanent paralysis and , as well as the potential need for eventual revision of the prosthetic. Surgeon: Loraine Gomez Mechanical Maintenance: Caroline Alvarez Anesthesia Type: General and Spinal Operative Notes Findings: Severe right hip osteoarthritis, adequate stability and bone Closure Type: primary Specimen(s): none sent Prosthetic devices, grafts, tissues, transplants, or devices: Gomez and Nephew 56 mm R3 cup, one 6.5 mm screw, size 12 anthology standard offset, 36+ 0 cobalt head, neutral poly liner Estimated Blood Loss (mL): 250 Blood products transfused: none Tourniquet time (min): 250 Procedure in detail: The patient was brought to the operating room. Patient was carefully positioned in the supine position. Time-out was performed and antibiotics were given. Anesthesia was induced. He was positioned in the on the table in order to allow hyperextension of the hip. The right lower extremity was prepped and draped in a standard sterile fashion. An anterior right hip incision was made 1 fingerbreadth lateral to the anterior superior iliac spine and extended distally towards the greater trochanter. Dissection was carried out through skin and subcutaneous tissues. Superficial hemostasis was achieved. The fascia over the tensor fascia karla was defined and incised with a knife. Two Allis clamps were used to grasp the fascia. Tensor fascia karla was retracted laterally. A gelpi retractor was placed. Dissection was carried out down along the neck. The circumflex vessels were carefully identified and cauterized with the Aqua Mantis. There was good visualization of the femoral neck. A Cobra was placed superior to the neck and the gluteus fibers were carefully stripped from that superior aspect of the capsule. A 2nd retractor was placed along the inferior aspect of the neck. The rectus insertion along the capsule was partially released. A 3rd retractor that was then gently placed over the rim of the acetabulum under the rectus. Capsule was carefully incised and released from the intertrochanteric line circumferentially superior to the mid sagittal line and inferiorly to the mid sagittal line until the lesser trochanter was palpable. A tag stitch was placed both in the superior and inferior limb of the capsular insertion. Along the acetabulum capsule was also released up to the mid sagittal 12:00 position. A portion of the labrum was resected. A saw was used to perform an osteotomy at the level of the intertrochanteric line and the junction of the superior femoral neck leaving approximately 1 finger breath of residual inferior neck above the lesser trochanter. A 2nd cut was made along the femoral neck at the base of the head and a napkin ring of neck was removed. Corkscrew was placed in the femoral head and the head was removed without difficulty. Retractors were then repositioned around the acetabulum. Residual labrum was resected and additional osteophytes were removed. A reamer that was 4 mm below the templated size was placed by hand in the acetabulum and it was reamed to centralize the acetabulum. It was then reamed up to 2 under the templated size and fluoroscopy was brought in to confirm the position of the reaming and depth of reaming. I reamed 1 under the anticipated size. A trial cup was placed and noted that it was appropriately sized and fluoroscopy confirmed position and depth. The component was open and inserted without difficulty fluoroscopic imaging was used to confirm that the cup had been adequately seated and was well positioned. It was further stabilized with a single screw. Neutral poly liner was placed. The cup was tested and noted to be stable. Attention was then directed to the femur. The femur was gently hyperextended additional capsular release was performed as needed in order to allow adequate visualization of the proximal femur with elevation of the femur. Patient was placed in a hyperextended slightly adducted position with maximum external rotation. Box osteotome was used to check for any residual neck as well as sclerotic bone along the trochanter. Elmer pepper was placed in the femur. Additional broaching was performed. Canal finder was used to determine the alignment of the canal and position. Size 1 broach was placed. The canal was then appropriately broached up to the templated size as long as there was adequate stability of the broach and serial advancement of the broach without excessive impingement. Specific attention was directed at avoiding varus attempting to direct the distal aspect of the broach more anteriorly and avoiding excessive anteversion. Trial reduction showed acceptable range of motion, good stability, no posterior impingement, roman catholic of leg length and appropriate lateral shuck. I also hyperflexed the hip and checked that there was no impingement anteriorly and there was good stability with flexion, adduction and internal rotation. Marcaine and Exparel were injected. The stem was placed without difficulty. Repeat trial reduction and x-ray showed acceptable overall position, length, and no evidence of the femoral fracture. Final head was placed. Wound was meticulously irrigated with normal saline. The hip was reduced and additional Exparel and Marcaine were injected. The capsule was closed with interrupted nonabsorbable sutures. The fascia of the tensor was closed with interrupted and running Vicryl. No drain was placed. Any tensor fascia karla muscle that appeared to be contused or injured which was a minimal amount was carefully resected. Capsule around the tensor was injected with Exparel and Marcaine. The skin was closed with barbed stitches for the subcutaneous tissue and skin. We also used surgical glue. The wound was dressed sterilely. Brief Betadine soak was also used and was meticulously irrigated with normal saline. Patient was transferred to recovery room in satisfactory condition. Complications: none Post-operative Condition: stable Disposition: Acute Care Plan for aftercare: The patient will be maintained on a standard total hip replacement protocol with weight bearing as tolerated and anterior hip precautions. The patient will receive Aspirin and sequential compression devices for DVT prophylaxis. The patient will be discharged home when safe for the home environment.
[2021-08-18] MEDS: CEFAZOLIN 2 GM/20 ML SYRINGE IV ×2 (11:48→20:44)
[2021-08-18] MEDS: TRANEXAMIC ACID 1,000 MG VIAL 1000 MG INJ ×2 (12:05→13:35)
--- NOTE | 2021-08-18 12:40 | SUR.OPER ---
Supine on padded Acme table with bilateral legs secured in padded positioning boots and suspended in positioning spars, operative leg in traction per surgeon. Head on one pillow. Arm on non-operative side secured on padded armboard <90 degrees abduction. Arm on operative side padded and resting across chest then secured with tape over sheet. Padded perineal post in place per surgeon.
[2021-08-18] MEDS: SODIUM CHLORIDE 0.9% 30 ML, VASOPRESSIN 20 UNIT INJ (13:13)
[2021-08-18] MEDS: SODIUM CHLORIDE IRRIG SOLUTION 250 ML, POVIDONE-IODINE SPONGE STICKS 1 APPLIC IRR (13:25)
[2021-08-18] MEDS: BUPIVACAINE LIPOSOME 266 MG/20 ML VIAL INJ (13:45)
[2021-08-18] MEDS: BUPIVACAINE 0.25% (PF) 60 ML, EPINEPHrine 0.3 MG INJ (13:45)
--- NOTE | 2021-08-18 14:00 | DI.RAD.S_ITS ---
PROCEDURE: XR HIP W PEL IF DONE RT 2V INDICATIONS: TOTAL RIGHT HIP TECHNIQUE: Two views of the hip were acquired. COMPARISON: Located Within [facility], , XR HIP W PEL IF DONE RT 2V, 08/18/2021, 12:58. FINDINGS: Postsurgical changes of right total hip arthroplasty. Normal alignment and configuration of the hardware. No [place] bone fracture identified. Expected postoperative periarticular soft tissue lucencies. IMPRESSION: Expected appearance of the right hip status post total arthroplasty. Dictated by: Koffi Quintanilla M.D. on 08/18/2021 at 15:44 Approved by: Koffi Quintanilla M.D. on 08/18/2021 at 15:45
[2021-08-18] MEDS: FLUCONAZOLE 100 MG TABLET 400 MG PO (15:00)
[2021-08-18] MEDS: LACTATED RINGERS 1,000 ML 125 ML IV (15:23)
[2021-08-18] MEDS: IBUPROFEN 400 MG TABLET PO (17:59)
[2021-08-18] MEDS: ACETAMINOPHEN 325 MG TABLET 650 MG PO (17:59)
--- NOTE | 2021-08-18 18:18 | PT.IPTN ---
Current Diagnoses Unilateral primary osteoarthritis, right hip (08/18/21) Surgery Performed Operation Date: 08/18/21 10:45 Actual Procedures p Total Hip Arthroplasty/Anterior Approach(Right) - Loraine Gomez MD Physical Therapy Treatment Note M3 PT-IP Subjective Start: 08/18/21 18:15 Freq: NEEDED Status: Active Protocol: Document 08/18/21 16:25 AB (Rec: 08/18/21 18:18 AB [id number]) Subjective Physical Therapy Visit Type Type Administrative Note Notes checked on pt and pt still has numbness on his LE and not ready to participate with PT. Pt and spouse provided home set up info and PLOF. will f/ u tomorrow. set up 9 am PT session with pt and spouse.
[2021-08-18] MEDS: DOCUSATE 100 MG CAPSULE PO (20:44)
[2021-08-18] MEDS: ASPIRIN EC 81 MG TABLET PO (20:44)
[2021-08-18] MEDS: lisinopriL 20 MG TABLET 40 MG PO (20:44)
[2021-08-19] VITALS: BP 127/72; PULSE 78; RESP 17; TEMP 36.4; O2SAT 94
[2021-08-19] MEDS: IBUPROFEN 400 MG TABLET PO ×3 (00:06→11:31)
[2021-08-19] MEDS: ACETAMINOPHEN 325 MG TABLET 650 MG PO ×3 (00:06→11:31)
[2021-08-19] MEDS: CEFAZOLIN 2 GM/20 ML SYRINGE IV (03:51)
[2021-08-19 04:00] VITALS: BP 118/67; PULSE 70; RESP 17; TEMP 36.7; O2SAT 94
[2021-08-19 05:21] LABS: Hematocrit 36.9 % (41-53); Hemoglobin 12.6 g/dL (13.5-17.5)
[2021-08-19 08:00] VITALS: BP 147/78; PULSE 77; RESP 21; TEMP 37.3; O2SAT 96
[2021-08-19] MEDS: OXYCODONE IR 5 MG TABLET PO (08:12)
[2021-08-19] MEDS: ASPIRIN EC 81 MG TABLET PO (08:12)
[2021-08-19] MEDS: DOCUSATE 100 MG CAPSULE PO (08:12)
[2021-08-19] MEDS: FLUCONAZOLE 100 MG TABLET 400 MG PO (08:13)
--- NOTE | 2021-08-19 09:00 | PT.IIE ---
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) Hx of bursectomy (05/17/17) Hx of cholecystectomy Hx of left knee surgery Hx of right inguinal hernia repair Medical History (Last Reviewed 08/19/21 @ 11:25 by Caroline Alvarez PA-C) Chronic neck pain Hip fracture, left (1983) HTN (hypertension) Osteoarthritis Physical Therapy Inpatient Evaluation/Re-Eval M1 PT/OT-IP Prior Functional Status Start: 08/18/21 18:15 Freq: NEEDED Status: Active Protocol: Document 08/19/21 09:00 AB (Rec: 08/19/21 13:06 AB [id number]) Medical Review Prior Functional Status Medical History Reviewed Yes Communication able to make needs known Mobility and Gait pt stated that he is modified idnependent with all mobiltiies and ambulation without AD Social History Household Members spouse Living Arrangements House Number of Floors (Floors) One Floor Number of Stairs To Enter/Railing? 1 step to enter 1 step from rec room to the kitchen Home Environment Standard Height Toilet,Walk in Shower Home Equipment Front Wheel Walker,Straight Cane,Bedside Commode,Shower Seat without Backrest,Hand Held Shower M2 PT-IP Current Condition Start: 08/18/21 18:15 Freq: NEEDED Status: Active Protocol: Document 08/19/21 09:00 AB (Rec: 08/19/21 13:06 AB [email or web address]) Physical Therapy Current Condition Current Condition Evaluation Date 08/19/21 Treatment Diagnosis s/p R TRISH anterior approach; difficulty in walking Onset Date 08/18/21 M3 PT-IP Subjective Start: 08/18/21 18:15 Freq: NEEDED Status: Active Protocol: Document 08/19/21 09:00 AB (Rec: 08/19/21 13:06 AB [email or web address]) Subjective Physical Therapy Visit Type Type Initial Evaluation Visit Start Time 09:00 Visit Stop Time 10:07 Total Visit Minutes 67 Number of MAGAZINE PUBLISHER Visits 0 Physical Therapy Visit Comments Patient Comments agreeable to do PT Therapy Pain Assessment Pain When Pain Assessed During Mobility Pain Present Pain Present Pain Reported Location ledft knee Intensity 5 Scale Used Numeric (0 - 10) Pain Management Techniques Apply Cold,Distraction, Modification of Treatment,Re- positioning,Timing of Activity with Medications M4 PT-IP Mobility and Gait Start: 08/18/21 18:15 Freq: NEEDED Status: Active Protocol: Document 08/19/21 09:00 AB (Rec: 08/19/21 13:06 AB [id number]) PT-Bed Mobility Assessment Supine to Sit Supine to Sit Standby Assistance PT-Transfer Assessment Sit to and From Stand Sit to and from Stand Contact Guard Assistance,1 Person Assistance,Use of Upper Extremities Equipment Transfer Assistive Device Gait Belt,Front Wheeled Walker Orthotic/Prosthetic Devices or Brace: No Transfers Transfer Destination Chair Transfer Technique ambulated Transfer Ability Level of Assist Contact Guard Assistance, Minimal Assistance,1 Person Assistance,Use of Upper Extremities Comments Mobility Comments educated pt and spouse regarding hip anterior precautions. pt able to recall. completed supine to sit SBA. able to sit on EOB SBA. no c/o dizziness but c/o increase R hip pain. completed sit to stand min A and cues and ambulated towards the chair using FWW min A and cues. pt sat on the chair. caregiver training conducted. spouse stated that she worked at a PT clinic before. spouse was able to put safety belt on pt. assisted pt with sit to stand and ambulation. educated pt and spouse regarding stair climbing using FWW. spouse ambulated pt to the hallway and completed up/ down platform step using fWW CGA and cues. repeated x 2 sets. pt ambulated more in the hallway ~ 100 ft using FWW CGA and back to his room and on the chair. educated on car transfers. positioned pt on the chair. call light and table within reach. pt and spouse without further questions. Gait Assessment Gait Gait Assistance Required: Contact Guard Assist,Minimum Assistance Distance (Feet) 100 Able to Maintain Weight Bearing Status Yes During Gait Assistive Devices Assistive Device Gait Belt,Front Wheeled Walker Orthotic/Prosthetic Devices or Brace: No Gait Deviations General Gait Pattern Decreased Stride Length, Decreased Feet Clearance Factors Limiting Gait Function Factors Limiting Gait Function Decreased Activity Tolerance, Decreased Strength,Difficulty Following Directions,Limited Range of Motion,Pain,Poor Balance,Poor Safety Awareness Stair Climbing Assessment Evaluation Level of Assist On Stairs Contact Guard Assistance,1 Person Assistance Devices Stair Climbing Assistive Devices Front Wheel Walker Technique/Endurance Stair Climbing Direction Ascend and Descend Stair Climbing Technique Step to Step Number of Steps Climbed 1 Query Text: Stair Climbing Set # Repetitions (reps) 2 PT-Balance Assessment Sitting Balance and Reactions Static Sitting Balance Ability Good Dynamic Sitting Balance Ability Good Standing Balance and Reactions Static Standing Balance Ability Fair Dynamic Standing Balance Ability Fair Device Used FWW M5 PT-IP Objective Assessments Start: 08/18/21 18:15 Freq: NEEDED Status: Active Protocol: Document 08/19/21 09:00 AB (Rec: 08/19/21 13:06 AB [email or web address]) Orientation Orientation/Cognition Level of Alertness Alert Orientation Name,Place,Situation Language Function Ability Hard of Hearing Safety Awareness Decreased Safety Awareness Memory Description Short Term Impaired Gross Range of Motion Lower Extremity ROM Assessment Within Functional Limits Strength Lower Extremity Strength Assessment Right Impaired Hip 3+/5 Knee 4-/5 Coordination Assessment Gross Coordination Gross Coordination WNL Sensation Assessment Sensation Gross Sensation WNL Muscle Tone Muscle Tone WNL Yes M6 PT-IP Treatment Start: 08/18/21 18:15 Freq: NEEDED Status: Active Protocol: Document 08/19/21 09:00 AB (Rec: 08/19/21 13:06 AB [email or web address]) Physical Therapy Treatment Education Education Provided Precautions,Weight Bearing Status,Post-Op Packet,Safety M7 PT-IP Assessment and Plan Start: 08/18/21 18:15 Freq: NEEDED Status: Active Protocol: Document 08/19/21 09:00 AB (Rec: 08/19/21 13:06 AB [email or web address]) PT Summary Assessment and Plan Potential Rehabilitation Potential Good Status of Condition at Evaluation Stable Summary Impairments Pain,ROM,Strength,Balance, Coordination,Sensation,Tone, Cognition,Bed Mobility, Transfers,Gait,Activity Tolerance Assessment Summary caregiver training conducted and spouse was able to assist pt safely. pt may go home when medically stable. Goals Bed Mobility Goal Independent Transfer Goal Independent,Front Wheeled Walker Gait Goal Independent,Front Wheel Walker Gait Distance 200 Other Goals up/down 1 step using FWW mod I Days to Meet Goals 5 Frequency of Treatment Frequency Of Treatment Twice a Day Treatment Plan Physical Therapy Treatment Plan Bed Mobility Training,Transfer Training,Gait Training, Therapeutic Exercise,Balance Retraining,Post Op Education, Discharge Planning,Hot or Cold Pack,Neuromuscular Re-ed, Coordination Retraining,Manual Therapy Precautions Anterior Hip Precautions No Hip Extension,No Hip External Rotation Weight Bearing Status Weight Bearing Status Weight Bear as Tolerated Allowed Weight Bearing Amount (enter % RLe WBAT or #) (%) Recommendations To Nursing Amount of Assist Needed 1 Person Assist Discharge Recommendations PT Discharge Recommendations Home with Assistance, Outpatient PT Transportation Needs at Discharge Private Vehicle
--- NOTE | 2021-08-19 11:22 | P.DS_ITS ---
History of Present Illness History of Present Illness Date Patient Seen: 08/19/21 Time Patient Seen: 07:45 Chief complaint: OPB Narrative: Patient has no complaints of right hip pain this morning. He is feeling good and his pain is well managed with Tylenol ibuprofen. His numbness has resolved. He is planning on working with physical therapy this morning. His is at bedside. Overall he is feeling very well and would like to be discharged home today. Discharge Providers Provider Discharge Date: 08/19/21 Primary care physician: RAJNI Alexis Consults: 08/18/21 07:24 Consult to Anesthesiology Routine Comment: Consulting Provider: Anesthesiologist Reason for consultation: Regional block for post operative pain control 08/18/21 14:42 Consult to Discharge Planning Routine Comment: Consult to Physical Therapy Evaluate & Treat Comment: Physician Instructions: post op TRISH protocol Consult to Respiratory Therapy Evaluate & Treat Comment: Physician Instructions: Evaluate and treat Discharge provider: Caroline Alvarez PA-C Summary Hospital Course Discharge Diagnosis: Right hip OA Hospital Course: Operative Date/Time/Diagnoses Date of procedure: 08/18/21 Time of procedure: 11:50 Procedure & Clinicians Procedure: Right total hip arthroplasty anterior approach Same procedure as scheduled: Yes Indications: The patient has had progressively worsening right hip pain with radiographic changes consistent with arthritis. Non-operative management has failed and the patient has requested total hip replacement. The risks, benefits and alternatives to surgery were discussed with the patient prior to proceeding. Risks discussed included, but were not limited to, failure to relieve pain, leg length discrepancy, dislocation, stiffness, infection, nerve damage, deep venous thrombosis, pulmonary embolism, stroke, coma, heart attack, permanent paralysis and , as well as the potential need for eventual revision of the prosthetic. Surgeon: Loraine Gomez Process Engineering Intern: Caroline Alvarez Anesthesia Type: General and Spinal Operative Notes Findings: Severe right hip osteoarthritis, adequate stability and bone Closure Type: primary Specimen(s): none sent Prosthetic devices, grafts, tissues, transplants, or devices: Gomez [employer]hew 56 mm R3 cup,? one 6.5 mm screw, size 12 anthology standard offset, 36+ 0 cobalt head, neutral poly liner Estimated Blood Loss (mL): 250 Blood products transfused: none Tourniquet time (min): 250 Status at Discharge Cognitive/behavioral status at discharge: at baseline, oriented Functional status at discharge: uses cane/walker Overall status at discharge: patient is progressing back to baseline Exam Vital Signs (past 8 hours): - 08/19/21 04:00 08/19/21 08:00 08/19/21 07:00 Temperature 98.0 F 99.1 F Pulse Rate 70 77 Respiratory Rate 17 21 Blood Pressure 118/67 147/78 H Pulse Oximetry 94 96 Oxygen Delivery Method Room Air Oxygen Flow Rate 0 Oxygen Delivery Method Room Air Oxygen Flow Rate 0 Narrative Exam Narrative: Pleasant 75-year-old male, resting comfortably in bed, no acute distress. His is at bedside. Dressing is clean, dry, intact. Bilateral lower extremity: Motor functions are grossly intact, sensation is grossly intact to light touch, calves are soft and nontender to palpation. 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 maintain anterior hip precautions x6 weeks. Weightbearing as tolerated with front wheel walker -continue with multimodal pain management, the patient is requesting Montgomery 5 half to 1 tablet as needed for moderate to severe pain. He notes oxycodone is too strong for him. -aspirin 81 mg twice daily x6 weeks for DVT prophylaxis -DC home when cleared by PT Discharge Plan Discharge Plan Patient Disposition: Home Discharge orders & Medications Discharge Orders: Discharge (Order); Ordered 08/19/21 Ordered By: Caroline Alvarez Prescriptions: New acetaminophen 500 mg capsule 500 mg PO Q4H MDD Max 3000 mg a day Qty: 90 0RF docusate sodium 100 mg Capsule 100 mg PO BID PRN (Reason: Constipation from narcotic pain meds) Qty: 20 0RF hydrocodone-acetaminophen 5-325 mg Tablet See Rx Instructions .ROUTE .COMPLEX MDD Max 3000mg acetaminophen/day PRN (Reason: Pain, Moderate (4-6)) Qty: 20 0RF Rx Instructions: Take 1/2-1 tablet every 4 hours as needed for moderate to severe postop pain ibuprofen 400 mg Tablet 400 mg PO Q4-6H MDD Max 2400 mg per day Qty: 90 0RF Continued fluconazole [Diflucan] 100 mg tablet 400 mg PO QAM Qty: 0 lisinopril 40 mg Tablet 40 mg PO BEDTIME aspirin 81 mg Tablet,Delayed Release (Dr/Ec) 81 mg PO BID 42 Days Qty: 84 0RF Rx Instructions: Prevent blood clots Discontinued ibuprofen 400 mg Tablet 400 mg PO Q4HR Qty: 60 0RF Follow up/Referrals: Esperanza Hernandez ARNP [Primary Care Provider] - Loraine Gomez MD [Physician] - (10-14 days for postoperative visit) Diet/Activity/Treatments Diet: Diet as Tolerated Other treatments: Medications: -Aspirin 81mg twice daily x6 weeks to prevent blood clots. -OTC Tylenol 500 mg 1 tablet every 4 hours as needed for pain/fever. Max 6 tablets per day. -Ibuprofen 400 mg 1 tablet every 4 hours as needed for pain/inflammation. Max 2,400 mg per day. -Montgomery 5/325 take 1/2-1 tablet every 4 hours as needed for moderate-severe pain (narcotic pain medication). Max Tylenol (acetaminophen) is 3000 mg per day from all sources. -As needed medications: -Ducolax and /or MiraLax as needed for constipation from narcotic pain medications. -Pepcid AC as needed for stomach upset (usually from aspirin or i buprofen). Dressing/Wound care: -Keep Aquacell dressing in place until postoperative follow-up office visit. -Okay to shower. Keep wound out of direct water stream. No soaking or submerging until all the scabs fall off (approximately 6 weeks). -No lotions, ointments, or scar creams directly to the incision until the wound is healed (4-6 weeks), -Please call the office if dressing becomes wet, soiled, or saturated. Activities: -Maintain anterior hip precautions x6 weeks. -Weight-bearing as tolerated. Use front wheeled walker, and progress to cane when safe. -Continue with home exercises as directed by your physical therapist. -Elevate ?toes above the nose if you have significant swelling in your lower leg. (A wedge pillow is easiest.) -Ice your incision as needed for pain/inflammation/swelling. Protect your skin with a folded pillowcase. Follow-up: -Follow-up with your surgeon or PA in the office in 10-14 days after surgery. -Follow-up with your surgeon 6 weeks postoperatively. Call the office if you have chest pain, shortness of breath, significant swelling that will not resolve with elevating, fever over 101?, significantly worsening pain, or are concerned you might need to go to the Emergency Room. [facility]: [phone] Skin/Wound/Dressing Care Report to your healthcare provider any signs of infection, such as:: chills, fever, night sweats, unusual drainage and unusual redness Visit Report/Discharge Packet Instructions: DI for Hip Replacement Stand Alone Forms: Surgery Discharge Discharge Data Primary Care Provider: Esperanza Hernandez Attending Provider: Loraine Gomez VTE Deep Vein Thrombosis/Pulmonary Embolism Present on Admission: No
[2021-08-19 12:00] VITALS: BP 122/72; PULSE 81; RESP 18; TEMP 36.8; O2SAT 97
--- NOTE | 2021-08-19 13:08 | PC.NURSE ---
Pt is AxOx4, needs minimum assistance and cooperative. VSS, pt requested PRN Oxy 5mg in the morning before PT and it was effective. Pt worked with PT and pt did well. Pt is cleared from PT. Pt is eating well and voiding well. Pt is ready d/c. D/C instruction given to pt and the spouse. No other changes.
== END 2021-08-19 13:14 | disposition home or self-care (01) ==
LOC: OR 08:42 → AC 13:05
PROVIDERS: PCP Nurse Practitioner Family; Referring Provider Psychiatry & Neurology Neurology; Visit Provider Orthopaedic Surgery
PROC: (CPT 27130; principal; 2021-08-18 10:45)
DX: M16.11 Unilateral primary osteoarthritis, right hip (principal); I10 Essential (primary) hypertension; R55 Syncope and collapse; Z20.822 Contact with and (suspected) exposure to COVID-19
CPT/HCPCS: 27130; 36415; 73502; 76000; 85014; 85018; 87635; 97161; 97530; C1776; C9290; J0171; J0690; J1100; J2250; J2405; J2704; J3010